=== PATIENT | female | born 1935 | race Caucasian/White ===

== ENCOUNTER 2016-12-12 11:05 | Inpatient (IN) | payer MEDICARE, OTHER ==
[~2016-12-12] VITALS: Ht 170.2 cm; Wt 79.6 kg
[2016-12-16] MEDS ORDERED: ZETI10TA5 PO (11:53)
[2016-12-16] MEDS ORDERED: FISH1000 PO (11:54)
[2016-12-16] MEDS ORDERED: AMLO5TAB2 PO (14:15)
[2016-12-30] MEDS: SODIUM CHLOR 0.9% 1000 ML INJ 1,000 ML IV SCH ×2 (00:13→11:05)
[2016-12-30] MEDS ORDERED: INSULIN HUMAN REGULAR 1,000 UNITS/10 ML VIAL SQ PRN (06:15)
[2016-12-30] MEDS ORDERED: ceFAZolin 2 GM PREMIX 50 ML IV SCH (06:15)
[2016-12-30] MEDS ORDERED: LACTATED RINGER'S 1000 ML IV SCH (06:15)
[2016-12-30] MEDS: SODIUM CHLORIDE 0.9% IV SCH ×2 (06:15→08:35)
[2016-12-30] MEDS: TRANEXAMIC PERI-ARTICULAR 3,000 MG/NS 100 ML P-ARTICULR SCH ×4 (06:15→09:11)
[2016-12-30] MEDS ORDERED: POVIDONE IODINE 7.5% SCRUB 118 ML BOTTLE TOP SCH (06:15)
[2016-12-30] MEDS ORDERED: ROPIVACAINE PERI-ARTICULAR INJECTION. PERIART SCH ×5 (06:15)
[2016-12-30] MEDS ORDERED: SODIUM CHLORID 0.9% 500 ML IV SCH (06:15)
[2016-12-30] MEDS ORDERED: VANCOMYCIN 1000 MG/NS 250 ML (for <70 kg) IV SCH ×2 (06:15)
[2016-12-30] MEDS ORDERED: CHLORHEXIDINE GLUCONATE 4% SOLN 120 ML BTL TOP SCH (06:15)
[2016-12-30] MEDS: TRANEXAMIC ACID IV SCH ×2 (06:15→08:35)
[2016-12-30] MEDS ORDERED: METOPROLOL TARTRATE 25 MG TAB PO PRN (06:15)
[2016-12-30 06:20] VITALS: BP 144/69; PULSE 74; RESP 16; TEMP 98.4; O2SAT 95
[2016-12-30] MEDS ORDERED: DEXAMETHASONE SOD PHOS 20 MG/5 ML VIAL IV PUSH SCH (06:30)
[2016-12-30] MEDS ORDERED: GENTAMICIN SULFATE 80 MG/2 ML VIAL ONE (07:11)
[2016-12-30] MEDS ORDERED: ENOX40P SQ (07:12)
[2016-12-30] MEDS ORDERED: HYDR-3288 PO (07:12)
[2016-12-30] MEDS ORDERED: MAGNESIUM HYDROXIDE SUSP 30 ML CUP PO PRN (07:15)
[2016-12-30] MEDS ORDERED: ZOLPIDEM TARTRATE 5 MG TAB PO PRN (07:15)
[2016-12-30] MEDS ORDERED: NALOXONE HCL 0.4 MG/ML AMP IV PRN (07:15)
[2016-12-30] MEDS ORDERED: Post-op Orders (for Pharmacy) MISC XX ONE (07:15)
[2016-12-30] MEDS ORDERED: ALUMINUM/MAGNESIUM/SIMETH 30 ML CUP PO PRN (07:15)
[2016-12-30] MEDS ORDERED: SODIUM CHLORIDE 0.9% FLUSH 5 ML FLUSH IVF PRN (07:15)
[2016-12-30] MEDS ORDERED: ACETAMINOPHEN/HYDROcodone 325 MG/7.5 MG TAB PO PRN (07:15)
[2016-12-30] MEDS ORDERED: MORPHINE SULFATE 4 MG/ML INJ IV PUSH PRN (07:15)
[2016-12-30] MEDS ORDERED: BISACODYL 10 MG SUPP PR PRN (07:15)
[2016-12-30] MEDS ORDERED: diphenhydrAMINE HCL 50 MG/ML VIAL IV PRN (07:15)
[2016-12-30] MEDS ORDERED: ONDANSETRON HCL 4 MG/2 ML VIAL IVP PRN (07:15)
[2016-12-30] MEDS: EXPAREL PERI-ARTICULAR INJECTION (TOTAL VOL. 120 ML) P-ARTICULR SCH ×4 (07:30→09:11)
[2016-12-30] MEDS ORDERED: FAMOTIDINE 20 MG/2 ML VIAL ONE ×2 (07:35→07:41)
[2016-12-30] MEDS ORDERED: MIDAZOLAM HCL 5 MG/5 ML VIAL ONE ×2 (07:35→07:40)
[2016-12-30] MEDS ORDERED: ACETAMINOPHEN 1000 MG/100 ML VIAL IV ONE (07:47)
[2016-12-30] MEDS ORDERED: HYDROmorphone HCL PF 2 MG/ML VIAL ONE (07:47)
[2016-12-30] MEDS ORDERED: PILL SPLITTER OTHER PRN (08:45)
[2016-12-30] MEDS ORDERED: EZETIMIBE 10 MG TAB PO SCH (09:00)
[2016-12-30] MEDS ORDERED: amLODIPine BESYLATE 5 MG TAB PO SCH (09:00)
--- NOTE | 2016-12-30 10:37 | MP ---
cc: WEI HERZOG DATE OF SURGERY: 12/30/2016 PREOPERATIVE DIAGNOSIS Left knee osteoarthritis. POSTOPERATIVE DIAGNOSIS Left knee osteoarthritis. PROCEDURE Left total knee arthroplasty. SURGEON Dr. Wei Herzog ORDERING MACHINE OPERATOR Wei Collins PA-C ANESTHESIA General with a nerve block. ESTIMATED BLOOD LOSS 50 cc. COMPLICATIONS None. TOURNIQUET TIME 40 minutes at 250 mmHg IMPLANTS USED DePuy Attune size 5 posterior stabilized femoral component, size 5 rotating platform tibia baseplate, size 5 mm polyethylene tibial insert, size 35 mm patella. JUSTIFICATION The patient is a 81-year-old female with a history of severe end-stage osteoarthritis involving the left knee. She has severe disabling pain with standing, walking, ambulation, weightbearing activities, even severe pain at rest. It does interfere with activities of daily living. She has failed greater than three months of nonoperative conservative treatment to include medication, therapy, injections, ambulatory assisted aids, home exercise program, activity modification and weight loss attempts. X-rays of the left knee reveal severe end-stage osteoarthritis, [id number] joint space narrowing, subchondral sclerosis, subchondral cysts, osteophyte formation and associated subluxation. The patient was counseled as to the risks, benefits and alternatives to a total knee arthroplasty. The risks were discussed which include but are not limited to anesthesia, bleeding, infection, damage to nerves and blood vessels, pain, stiffness, failure of components, blood clots, pulmonary embolism, and even . The patient's pain is severe. She favored the benefits over the risks and did wish to proceed with surgery. PROCEDURE IN DETAIL Written consent was obtained. The patient was identified by name, taken to the operating room and placed supine on the operating table. General anesthesia was administered as well as two grams of IV Ancef and one gram of IV vancomycin. A well-padded tourniquet was placed on the left thigh. The left lower extremity was prepped and draped using isopropyl alcohol, Hibiclens solution and ChloraPrep solution. After an appropriate timeout was performed an Esmarch bandage was used to exsanguinate the left lower extremity. The tourniquet was inflated to 250 mmHg. A longitudinal incision was made over the anterior aspect of the left knee. A medial parapatellar arthrotomy was performed. The patella was everted. A patella resection guide was used to resect 7.5 mm of patella. The size 35 mm guide was placed. Two drill holes were placed and the 35 mm trial fit well. Attention was turned to the femur where an intramedullary guide jordan was placed. The distal femoral guide was set to remove 10 mm of distal femur 5 degrees off the anatomic valgus axis alignment. An oscillating saw was used to perform the distal femoral cut. Attention was turned to the tibia where an extramedullary tibial guide was used to resect 5 mm off the lowest portion of the medial tibial plateau. The tibial guide was pinned in place and the tibia cut was performed. A 5 mm spacer block showed full extension. Attention was turned back to the femur where an AP sizer block measured a size 5. The 30 degree external rotation anterior reference guide was used to pin a size [address] The anterior, posterior and chamfer cuts were performed. A size 5 PCL box guide was pinned in place and the PCL was box cut with an oscillating saw. The medial and lateral meniscus remnants were removed as well as bone and soft tissue debris from the posterior portion of the knee. A size 5 tibia baseplate was pinned in place and the tibia was drilled and punched. The trial components were evaluated and final components cemented in place. With the 5 mm tibial insert the leg could achieve full extension to 0 degrees and flexion to 140. No evidence of tibial lift-off. Varus-valgus balance appeared appropriate and symmetric and the patella was noted to track centrally. The tourniquet was deflated. Bovie cautery was used for hemostasis. The knee was thoroughly irrigated with sterile saline pulse lavage antibiotic impregnated solution. The arthrotomy incision was closed with #1 Vicryl suture. The subcutaneous layer was closed with 2-0 Vicryl suture. Skin was closed with Dermabond. Sterile dressing was applied. The patient tolerated the procedure well with no intraoperative complications noted. Wei Collins, physician recycling assistant certified, was present during the entire procedure to include patient positioning and the procedure itself. The medical necessity of the physician recycling assistant was indicated in this case due to the complexity of the procedure. He assisted with appropriate manipulation of the leg and also retraction of muscle, tendon, bone and neurovascular structures. He assisted with both preparation of bone and implantation of the prosthetic replacement. MD CELESTINA Scott/DENNIS /10:08 AM /10:14 AM
--- NOTE | 2016-12-30 11:21 | RADRPT ---
EXAM DATE/TIME: 12/30/2016 10:44 [facility] COMPARISON: No previous studies available for comparison. INDICATIONS : Post operative left knee. MEDICAL HISTORY : None. SURGICAL HISTORY : None. ENCOUNTER: Initial ACUITY: 1 day PAIN SCORE: Non-responsive. LOCATION: Left Knee. FINDINGS: Two view examination of the left knee demonstrates no evidence of fracture or dislocation. Left knee arthroplasty. Postsurgical changes. CONCLUSION: Left knee arthroplasty. Candido Edwards MD on December 30, 2016 at 11:18 Board Certified Radiologist. This report was verified electronically.
[2016-12-30] MEDS ORDERED: *ONDANSETRON 4 MG VIAL PERIprocedural Use ONLY ONE (11:30)
[2016-12-30 12:20] VITALS: BP 134/64; PULSE 78; RESP 15; TEMP 95; O2SAT 96
[2016-12-30] MEDS ORDERED: BUPIVACAINE LIPOSOME PF 1.3% 20 ML VIAL ONE (12:21)
[2016-12-30] MEDS ORDERED: PROPOFOL 200 MG/20 ML AMP IV ONE (12:29)
[2016-12-30] MEDS ORDERED: LACTATED RINGER'S 1000 ML INJ 1,000 ML IV ONE (12:29)
[2016-12-30] MEDS: ACETAMINOPHEN/HYDROcodone 325 MG/7.5 MG TAB PO PRN ×3 (12:55→22:31)
[2016-12-30] MEDS ORDERED: MAGNESIUM HYDROXIDE SUSP 30 ML CUP PO ONE (15:00)
--- NOTE | 2016-12-30 15:49 | PD.CONS ---
HPI Service [facility] Consult Requested By Dr. Che Reason for Consult Medical management Primary Care Physician Prabhakar Danielson MD Diagnoses: History of Present Illness 81-year-old female with a history of hypertension, hyperlipidemia, and osteoarthritis admitted for left knee arthroplasty. The patient reports a history of persistent arthritic pain involving the left knee. She has tried conservative measures including steroid injections and physical therapy without relief. She was admitted by orthopedic service for left knee replacement. She is seen postoperatively. Regarding hypertension, she reports this has been controlled on her current medications. She denies episodes of shortness of breath or chest pain. She is currently comfortable. Pain is controlled. Review of Systems Constitutional: DENIES: Fever, Chills Musculoskeletal: COMPLAINS OF: Joint pain, Stiffness Except as stated in HPI: all other systems reviewed are Neg Past Family Social History Allergies: Coded Allergies: No Known Allergies (Unverified , 12/30/16) Past Medical History Osteoarthritis Hypertension Hyperlipidemia Past Surgical History Left knee replacement Varicose vein stripping. Reported Medications Reported Meds & Active Scripts Active Lovenox Inj (Enoxaparin Sodium) 40 Mg/0.4 Ml Syr 40 Mg SQ DAILY Byron (Hydrocodone-Acetaminophen) 7.5-325 mg Tab 1-2 Tab PO Q6H PRN Reported Amlodipine (Amlodipine Besylate) 5 Mg Tab 5 Mg PO DAILY Fish Oil ([place]-3 Fatty Acids) 1,000 Mg Cap Unknown Dose PO DAILY Zetia (Ezetimibe) 10 Mg Tab 5 Mg PO DAILY Family History Father from complication of a stroke. Mother of old age. 3 healthy children. Social History The patient is independent. She lives at home with her 87-year-old . Denies tobacco or alcohol. Physical Exam Vital Signs Vital Signs Date Time Temp Pulse Resp B/P Pulse Ox O2 Delivery O2 Flow Rate FiO2 12/30/16 12:20 95.0 78 15 134/64 96 12/30/16 11:55 87 17 141/63 97 Nasal Cannula 12/30/16 11:45 98.0 83 17 152/73 100 Room Air 12/30/16 11:30 80 17 148/69 93 Nasal Cannula 3 12/30/16 11:15 76 17 133/67 95 Nasal Cannula 3 12/30/16 11:00 84 17 132/62 94 Nasal Cannula 3 12/30/16 10:45 89 15 115/55 94 Nasal Cannula 3 12/30/16 10:25 97.1 73 15 108/49 95 Nasal Cannula 3 12/30/16 06:20 98.4 74 16 144/69 95 Physical Exam GENERAL: This is a well-nourished, well-developed patient, in no apparent distress. SKIN: No rashes, ecchymoses or lesions. Cool and dry. HEAD: Atraumatic. Normocephalic. EYES: Pupils equal round and reactive. Extraocular motions intact. No scleral icterus. No injection or drainage. ENT: Nose drainage. Throat without erythema. Uvula midline. Airway patent. NECK: Trachea midline. No JVD or lymphadenopathy. Supple, nontender, no meningeal signs. CARDIOVASCULAR: Regular rate and rhythm without murmurs, gallops, or rubs. RESPIRATORY: Clear to auscultation. Breath sounds equal bilaterally. No wheezes , rales, or rhonchi. GASTROINTESTINAL: Abdomen soft, non-tender, nondistended. No hepato-splenomegaly , or palpable masses. No guarding. MUSCULOSKELETAL: Left knee postop. It is wrapped. Neurovascularly intact distally at the toes. NEUROLOGICAL: Awake and alert. Cranial nerves II through XII intact. Motor and sensory grossly within normal limits. Five out of 5 muscle strength in all muscle groups. Normal speech. Laboratory Laboratory Tests Test 12/30/16 06:20 Blood Type A POSITIVE Antibody Screen NEGATIVE Blood Bank Comment Imaging Last Impressions Knee X-Ray 12/30/16 0710 Signed Impressions: Service Date/Time: Friday, December 30, 2016 10:44 - CONCLUSION: Left knee arthroplasty. Candido Edwards MD Assessment and Plan Problem List: (1) Primary localized osteoarthrosis, lower leg ICD Code: M17.10 Status: Acute (2) Status post left knee replacement ICD Code: Z96.652 Status: Acute Plan: Continue routine postop care per orthopedics. - Pain control. Bowel regimen. - DVT prophylaxis to be started tomorrow per orthopedics. (3) Hypertension ICD Code: I10 Status: Acute Plan: Controlled. Continue amlodipine. Monitor BP (4) Hyperlipidemia ICD Code: E78.5 Status: Acute Plan: Continue Zetia. Cheyenne Varela MD Dec 30, 2016 15:49
[2016-12-30 16:00] VITALS: BP 128/69; PULSE 81; RESP 18; TEMP 95.6; O2SAT 96
[2016-12-30 17:42] VITALS: O2SAT 96
[2016-12-30 20:25] VITALS: BP 129/70; PULSE 88; RESP 16; TEMP 96.5; O2SAT 96
[2016-12-30] MEDS: MAGNESIUM HYDROXIDE SUSP 30 ML CUP PO SCH (21:00)
[2016-12-30] MEDS ORDERED: SENNOSIDES 8.6 MG TAB PO SCH (21:00)
[2016-12-30] MEDS: SODIUM CHLORIDE 0.9% FLUSH 5 ML FLUSH IVF SCH (21:00)
[2016-12-31 04:00] VITALS: BP 117/62; PULSE 77; RESP 16; TEMP 97.1; O2SAT 94
[2016-12-31 07:16] LABS: HEMATOCRIT 35.5 % (35.0-46.0); MEAN CELL VOLUME 90.1 FL (80.0-100.0); MEAN CORPUSCULAR HEMOGLOBIN 30.2 PG (27.0-34.0); MEAN CORPUSCULAR HGB CONC 33.5 % (32.0-36.0); PLATELET COUNT 171 TH/MM3 (150-450); RED BLOOD COUNT 3.94 MIL/MM3 (4.00-5.30); RED CELL DISTRIBUTION WIDTH 13.2 % (11.6-17.2); REVIEW FLAG FINAL; WHITE BLOOD COUNT 12.5 TH/MM3 (4.0-11.0)
[2016-12-31 07:41] LABS: BICARBONATE 26.3 MEQ/L (21.0-32.0); POTASSIUM 3.9 MEQ/L (3.5-5.1)
[2016-12-31 08:00] VITALS: BP 133/66; PULSE 82; RESP 16; TEMP 95.5; O2SAT 98
--- NOTE | 2016-12-31 08:31 | PD.ORT.PN ---
Subjective Post Op Day #: 1 Subjective Remarks minimal pain. very pleased. Objective Vitals Vital Signs Date Time Temp Pulse Resp B/P Pulse Ox O2 Delivery O2 Flow Rate FiO2 12/31/16 04:00 97.1 77 16 117/62 94 12/30/16 20:25 96.5 88 16 129/70 96 12/30/16 17:42 96 21 12/30/16 16:00 95.6 81 18 128/69 96 12/30/16 12:20 95.0 78 15 134/64 96 12/30/16 11:55 87 17 141/63 97 Nasal Cannula 12/30/16 11:45 98.0 83 17 152/73 100 Room Air 12/30/16 11:30 80 17 148/69 93 Nasal Cannula 3 12/30/16 11:15 76 17 133/67 95 Nasal Cannula 3 12/30/16 11:00 84 17 132/62 94 Nasal Cannula 3 12/30/16 10:45 89 15 115/55 94 Nasal Cannula 3 12/30/16 10:25 97.1 73 15 108/49 95 Nasal Cannula 3 I/O 12/30/16 12/30/16 12/30/16 12/31/16 12/31/16 12/31/16 07:00 15:00 23:00 07:00 15:00 23:00 Intake Total 1800 ml 720 ml 240 ml Output Total 825 ml 750 ml 550 ml Balance 975 ml -30 ml -310 ml Intake Oral 720 ml 240 ml IV Total 300 ml Other 1500 ml Output Urine Total 775 ml 750 ml 550 ml Estimated Blood Loss 50 ml # Bowel Movements 0 0 Result Diagram: 12/31/1615 12/31/16 0615 Objective Remarks in bed, nad incision no erythema, no drainage neg homans nvi Assessment & Plan Ortho Post Op Day #: 1 Problem List: (1) Status post left knee replacement Assessment and Plan s/p L TKA wbat daily dressing changes lovenox d/c planning home with hhc and pt - ok to d/c today if pain controlled rx in chart f/up dr. capone 2 weeks Don Collins Dec 31, 2016 08:30
[2016-12-31] MEDS ORDERED: ASPI1TAB69 PO (08:33)
--- NOTE | 2016-12-31 08:33 | HHI.DCPOC ---
Discharge Care Plan Diagnosis: (1) Status post left knee replacement Your Health Problems Are: Difficulty with ADL Goals to Promote Your Health * To prevent worsening of your condition and complications * To maintain your health at the optimal level Directions to Meet Your Goals Take your medications as prescribed Follow your dietary instruction Follow activity as directed Keep your appointments as scheduled Take your immunizations and boosters as scheduled If your symptoms worsen call your PCP, if no PCP go to Urgent Care Center or Emergency Room Smoking is Dangerous to Your Health. Avoid second hand smoke Call the 24-hour hour crisis hotline for domestic abuse at Don Collins Dec 31, 2016 08:33
--- NOTE | 2016-12-31 08:34 | HHI.FF ---
Face to Face Verification Diagnosis: (1) Status post left knee replacement Physical Therapy Gait training, Safety evaluation, Transfer training, bed to chair Knee: Total knee, Protocol: Left, Full weight bearing Left LE Weight Bearing: WB as tolerated Nursing RN: 3 days/week x 2 weeks Nursing: Charito teaching, Dressing changes Dressing Changes: Daily dressing change I have seen patient Izabela Delcid on 12/31/16. My clinical findings support the need for the requested home health care services because: Limited ability to care for self High risk of falls I certify that my clinical findings support that this patient is homebound because: Post-op weakness Unsteady gait/balance Don Collins Dec 31, 2016 08:34
[2016-12-31] MEDS ORDERED: CPMMACHINE (08:35)
[2016-12-31] MEDS ORDERED: ADJUSTABLE COMM1 MIS (08:35)
[2016-12-31] MEDS ORDERED: ENOXAPARIN SODIUM 40 MG/0.4 ML SYRINGE SQ SCH (09:00)
[2016-12-31] MEDS: MAGNESIUM HYDROXIDE SUSP 30 ML CUP PO SCH (09:00)
[2016-12-31] MEDS: SODIUM CHLORIDE 0.9% FLUSH 5 ML FLUSH IVF SCH (09:00)
[2016-12-31] MEDS: ACETAMINOPHEN/HYDROcodone 325 MG/7.5 MG TAB PO PRN ×2 (09:07→13:43)
[2016-12-31 12:00] VITALS: BP 125/58; PULSE 86; RESP 16; TEMP 96.9; O2SAT 97
--- NOTE | 2016-12-31 13:16 | HHI.PR ---
Subjective Remarks Patient seen and examined No significant left knee pain Afebrile Looking for discharge home with home health care today Objective Vitals Vital Signs Date Time Temp Pulse Resp B/P Pulse Ox O2 Delivery O2 Flow Rate FiO2 12/31/16 12:00 96.9 86 16 125/58 97 12/31/16 08:00 95.5 82 16 133/66 98 12/31/16 04:00 97.1 77 16 117/62 94 12/30/16 20:25 96.5 88 16 129/70 96 12/30/16 17:42 96 21 12/30/16 16:00 95.6 81 18 128/69 96 I/O 12/30/16 12/30/16 12/30/16 12/31/16 12/31/16 12/31/16 07:00 15:00 23:00 07:00 15:00 23:00 Intake Total 1800 ml 720 ml 240 ml Output Total 825 ml 750 ml 550 ml Balance 975 ml -30 ml -310 ml Intake Oral 720 ml 240 ml IV Total 300 ml Other 1500 ml Output Urine Total 775 ml 750 ml 550 ml Estimated Blood Loss 50 ml # Bowel Movements 0 0 Result Diagram: 12/31/1615 12/31/16 0615 Imaging Last Impressions Knee X-Ray 12/30/16 0710 Signed Impressions: Service Date/Time: Friday, December 30, 2016 10:44 - CONCLUSION: Left knee arthroplasty. Candido Edwards MD Objective Remarks GENERAL: NAD SKIN: Warm and dry. HEAD: Normocephalic. EYES: No scleral icterus. No injection or drainage. NECK: Supple, trachea midline. No JVD or lymphadenopathy. CARDIOVASCULAR: Regular rate and rhythm without murmurs, gallops, or rubs. RESPIRATORY: Breath sounds equal bilaterally. No accessory muscle use. GASTROINTESTINAL: Abdomen soft, non-tender, nondistended. MUSCULOSKELETAL: No cyanosis, or edema. Left knee repair, dressing over incision-neurovascular intact BACK: Nontender without obvious deformity. No CVA tenderness. A/P Problem List: (1) Primary localized osteoarthrosis, lower leg ICD Code: M17.10 Status: Acute (2) Status post left knee replacement ICD Code: Z96.652 Status: Acute (3) Hypertension ICD Code: I10 Status: Acute (4) Hyperlipidemia ICD Code: E78.5 Status: Acute Assessment and Plan 81-year-old female with Left total knee arthroplasty 12/30/16: Management per orthopedic surgery, continue current postop care with pain medication, DVT prophylaxis, PT to treat and eval Hyperlipidemia: On Zetia Hypertension: Normotensive with Norvasc DVT prophylaxis: Lovenox Discharge Planning Discharge per orthopedic surgery Candido Shin MD Dec 31, 2016 13:16
[2016-12-31] MEDS ORDERED: MULTIVITAMINS/MINERALS THERAPEUTIC TAB PO SCH (21:00)
[2016-12-31] MEDS ORDERED: DOCUSATE SODIUM 100 MG CAP PO SCH (21:00)
--- NOTE | 2017-01-06 08:43 | MD ---
cc: WEI CHE ADMISSION DATE: 12/30/2016 DISCHARGE DATE: 12/31/2016 ADMISSION DIAGNOSIS Severe degenerative osteoarthritis left knee. DISCHARGE DIAGNOSIS Severe degenerative osteoarthritis left knee. HISTORY OF PRESENT ILLNESS Mrs. Delcid is a 81-year-old female who presented to the [facility] for evaluation by Dr. Wei Che regarding her severe and progressive left knee pain. The patient states the pain has been bothering her for numerous years but currently is a severe, constant, aching sensation that is aggravated by weightbearing activities. She notes the pain is limiting her activities of daily living. She notes currently she has no alleviating factors, although in the past she has tried medications, bracing, physical therapy, home exercise program, multiple injections without long-lasting relief of symptoms. The patient does have x-ray evidence of severe degenerative osteoarthritis of left knee. While in the office the patient was counseled on her diagnosis and treatment options. Risks, benefits, indications of all were discussed in great detail. The patient did elect proceed with surgical intervention to include a left total knee arthroplasty. Date of surgery 12/30/2016 left total knee arthroplasty. Postop. After surgery the patient admitted to [facility] where she received appropriate medical management, pain control, DVT prophylaxis as well as physical therapy. Discharge. Once being discharged from the hospital the patient is cleared to go home where she will receive home health care and home physical therapy. She is in stable condition. The patient may weight bear as tolerated. She is to receive daily dressing changes and has been instructed on appropriate wound care management. She has also been provided prescriptions for pain control as well as DVT prophylaxis medication. Patient has been provided a follow-up appointment to see Dr. Wei Che in the office in approximately 2 weeks from date of surgery. The patient has asked appropriate questions which have all been answered. The patient has been discharged. Dictated by ANTON Puente MD CELESTINA Scott/KK /7:51 AM /8:43 AM
== END 2016-12-31 15:42 | disposition home health service (06) | DRG 470 ==
LOC: HSDI 12-30 05:09 → N06B 12-30 12:13
PROVIDERS: ADMIT Orthopaedic Surgery Sports Medicine; ATTEND Orthopaedic Surgery Sports Medicine
PROC: 0SRD0J9 Replacement of Left Knee Joint with Synthetic Substitute, Cemented, Open Approach (ICD-10-PCS; principal; 2016-12-30 08:13)
DX: M17.12 Unilateral primary osteoarthritis, left knee (principal); E87.5 Hyperkalemia; I10 Essential (primary) hypertension
CPT/HCPCS: 73560; 80048; 85027; 86850; 86900; 86901; 94150; C1776; C9290; J0131; J0690; J1100; J1170; J1580; J1650; J2250; J2405; J3370; J7030; J7050; J7120; L1830

== ENCOUNTER → 2016-12-16 | Outpatient (CLI) | payer MEDICARE, OTHER ==
[~2016-12-16] MED LIST: ADJUSTABLE COMM1 MIS; AMLO10TA2 PO; AMLO5TAB2 PO; ASPI1TAB69 PO; CPMMACHINE; ENOX40P SQ; FISH1000 PO; HYDR-3288 PO; ZETI10TA5 PO
--- NOTE | 2016-12-16 13:36 | RADRPT ---
EXAM DATE/TIME: 12/16/2016 12:42 [facility] COMPARISON: No previous studies available for comparison. INDICATIONS : Evaluate for pneumonia, pneumothorax or communicable disease. Pre op left knee replacement. MEDICAL HISTORY : None. SURGICAL HISTORY : None. ENCOUNTER: Initial ACUITY: 1 day PAIN SCORE: 0/10 LOCATION: Bilateral chest FINDINGS: PA and lateral views of the chest demonstrate the lungs to be symmetrically aerated without evidence of mass, infiltrate or effusion. The cardiomediastinal contours are unremarkable. Osseous structure s are intact. CONCLUSION: No acute disease. Tyler Waller MD on December 16, 2016 at 13:34 Board Certified Radiologist. This report was verified electronically.
[2016-12-16 13:39] LABS: AUTOMATED NEUTROPHIL # 4.5 TH/MM3 (1.8-7.7); BASOPHIL # 0.1 TH/MM3 (0-0.2); BASOPHIL % 0.9 % (0.0-2.0); EOSINOPHIL # 0.6 TH/MM3 (0-0.4); HEMATOCRIT 43.6 % (35.0-46.0); HEMO FLAGS DIFF FINAL; LYMPH % 21.8 % (9.0-44.0); LYMPHOCYTE # 1.6 TH/MM3 (1.0-4.8); MEAN CORPUSCULAR HEMOGLOBIN 30.4 PG (27.0-34.0); MEAN CORPUSCULAR HGB CONC 33.8 % (32.0-36.0); MONO % 8.4 % (0.0-8.0); NEUT % 60.9 % (16.0-70.0); PLATELET COUNT 223 TH/MM3 (150-450); RED BLOOD COUNT 4.85 MIL/MM3 (4.00-5.30); RED CELL DISTRIBUTION WIDTH 13.4 % (11.6-17.2); WHITE BLOOD COUNT 7.5 TH/MM3 (4.0-11.0)
[2016-12-16 13:39] LABS: BACTERIA, URINE MOD /hpf; BLOOD, URINE TRACE (NEG); GLUCOSE,URINE NEG (NEG); KETONE, URINE TRACE mg/dL (NEG); MUCUS URINE FEW /lpf (OCC); NITRITE,URINE NEG (NEG); SQUAMOUS EPITHELIAL CELL URINE 5 /hpf (0-5); URINE COLOR YELLOW (YELLW/STRAW)
[2016-12-16 13:41] LABS: COMMENT (UR) CULTURE INDICATED; CULTURE IF INDICATED CULTURE INDICATED
[2016-12-16 13:46] LABS: APTT (PATIENT) 26.2 SEC (24.3-30.1); PROTHROMBIN TIME - PATIENT 11.5 SEC (9.8-11.6)
[2016-12-16 14:03] LABS: ALKALINE PHOSPHATASE 60 U/L (45-117); ALT (GPT) 33 U/L (10-53); ANION GAP 9 MEQ/L (5-15); AST (GOT) 17 U/L (15-37); BICARBONATE 27.1 MEQ/L (21.0-32.0); BLOOD UREA NITROGEN 14 MG/DL (7-18); CHLORIDE 105 MEQ/L (98-107); GLOMERULAR FILTRATION RATE 60 ML/MIN (>89); GLUCOSE,FASTING 81 MG/DL (74-99); POTASSIUM 4.2 MEQ/L (3.5-5.1); SODIUM (NA) 141 MEQ/L (136-145); TOTAL BILIRUBIN ADULT 0.5 MG/DL (0.2-1.0)
[2016-12-16 14:09] LABS: WESTERGREN SEDIMENTATION RATE 4 mm/hr (0-30)
--- NOTE | 2016-12-17 17:36 | EKG ---
Date Performed: 12/16/2016 Time Performed: 12:20:54 PTAGE: 81 years EKG: Sinus rhythm NORMAL ECG NO PREVIOUS TRACING DOCTOR: Robin Marx Interpretating Date/Time 12/17/2016 17:35:16
== END ==
LOC: CPRE 11:25
PROVIDERS: ATTEND Orthopaedic Surgery Sports Medicine
DX: Z01.812 Encounter for preprocedural laboratory examination (principal); Z01.818 Encounter for other preprocedural examination; Z01.811 Encounter for preprocedural respiratory examination; M17.12 Unilateral primary osteoarthritis, left knee; R82.90 Unspecified abnormal findings in urine
CPT/HCPCS: 36415; 71020; 80053; 81001; 85025; 85610; 85652; 85730; 87086; 93005